=== PATIENT | male | born 1965 | race Caucasian/White ===

== ENCOUNTER 2020-11-09 16:23 | Emergency (ER) | payer MEDICAID ==
[~2020-11-09] VITALS: Ht 180.3 cm; Wt 113.4 kg
[2020-11-09] MEDS ORDERED: LIDOCAINE 0.5%-EPI 1:200,000 50 ML VIAL ONE (17:11)
--- NOTE | 2020-11-09 17:12 | NUR ---
GRACIELA BOB AT BEDSIDE FOR SUTURING OF UPPER LIP
[2020-11-09 18:17] VITALS: BP 146/92
== END 2020-11-09 18:18 | disposition home or self-care (01) ==
LOC: ER 16:26
DX: S01.511A Laceration without foreign body of lip, initial encounter (principal); S40.812A Abrasion of left upper arm, initial encounter; S40.811A Abrasion of right upper arm, initial encounter; W05.1XXA Fall from non-moving nonmotorized scooter, initial encounter; Y93.I9 Activity, other involving external motion; Y92.89 Other specified places as the place of occurrence of the external cause; Y99.8 Other external cause status
CPT/HCPCS: 12011; 99283; A6403; J3490